=== PATIENT | female | born 1935 ===

== ENCOUNTER 2017-01-16 06:25 | Day surgery (SDC) | payer MEDICARE ==
[2017-01-16 06:50] VITALS: BMI 33.6
[2017-01-16 07:23] VITALS: TEMP 98.4
[2017-01-16] MEDS ORDERED: Lidocaine Hydrochloride 5 ML INJ ONE (08:02)
[2017-01-16] MEDS ORDERED: Propofol 10 mg/ml Inj (20 ML) ONE ×2 (08:02→08:23)
[2017-01-16] MEDS ORDERED: Lactated Ringer's 1,000 ML IV SCH (08:15)
[2017-01-16 09:32] VITALS: O2SAT 99
[2017-01-16 09:51] VITALS: BP 126/79; PULSE 79; RESP 14
== END 2017-01-16 09:50 | disposition home or self-care (01) ==
LOC: C.ENDO 06:25
PROVIDERS: ATTEND Internal Medicine Gastroenterology
DX: D12.2 Benign neoplasm of ascending colon (principal); D12.0 Benign neoplasm of cecum; D12.4 Benign neoplasm of descending colon; D12.5 Benign neoplasm of sigmoid colon; D12.3 Benign neoplasm of transverse colon; K64.1 Second degree hemorrhoids; K57.90 Diverticulosis of intestine, part unspecified, without perforation or abscess without bleeding; K62.5 Hemorrhage of anus and rectum
CPT/HCPCS: 45385; 82948; 88305; J2704; J7120